=== PATIENT | female | born 1950 | race Caucasian/White ===

== ENCOUNTER 2016-05-12 13:14 | Inpatient (IN) | payer MEDICARE ==
[~2016-05-12] VITALS: Ht 165.1 cm; Wt 123.8 kg
--- NOTE | 2016-05-12 12:20 | PD.HP.UP ---
H&P Update Note The Pre-Admit History and Physical Examination regarding the above named patient was reviewed (including, but not limited to, vital signs, heart, lungs, co-morbid conditions), and upon re-examination it is noted that: the patient's condition has not significantly changed since the last examination. Troy Torrez MD May 12, 2016 12:20
[~2016-05-12 13:14] MED LIST: LEVO175T2 PO; LISI-515 PO; MELO-1 PO; MULTTAB67 PO; NEOSTIGMINE 3 MG/3 ML SYR IV ONE; ONDANSETRON HCL 4 MG/2 ML VIAL IV PUSH ONE; PARO20TA2 PO; PHENYLEPH/NS 1000 MCG/10 ML SYR IV ONE; PROPOFOL 200 MG/20 ML AMP IV ONE; TIZA4CAP3 PO; ePHEDrine/NS 50 MG/5 ML SYR IV ONE
[2016-05-12 13:58] VITALS: BP 160/91; PULSE 91; RESP 16; TEMP 97.4; O2SAT 96
[2016-05-12] MEDS ORDERED: METOPROLOL TARTRATE 25 MG TAB PO PRN (14:15)
[2016-05-12] MEDS ORDERED: INSULIN HUMAN REGULAR 1,000 UNITS/10 ML VIAL SQ PRN (14:15)
[2016-05-12] MEDS ORDERED: LACTATED RINGER'S 1000 ML IV SCH (14:15)
[2016-05-12] MEDS ORDERED: SODIUM CHLORID 0.9% 500 ML IV SCH (14:15)
[2016-05-12 14:26] LABS: AUTOMATED NEUTROPHIL # 7.5 TH/MM3 (1.8-7.7); BASOPHIL # 0.1 TH/MM3 (0-0.2); BASOPHIL % 0.7 % (0.0-2.0); EOSINOPHIL # 0.3 TH/MM3 (0-0.4); EOSINOPHIL % 2.7 % (0.0-4.0); HEMATOCRIT 41.2 % (35.0-46.0); HEMO FLAGS DIFF FINAL; LYMPHOCYTE # 1.3 TH/MM3 (1.0-4.8); MEAN CELL VOLUME 86.7 FL (80.0-100.0); MEAN CORPUSCULAR HEMOGLOBIN 29.5 PG (27.0-34.0); MONO % 6.2 % (0.0-8.0); NEUT % 77.4 % (16.0-70.0); PLATELET COUNT 281 TH/MM3 (150-450); RED BLOOD COUNT 4.75 MIL/MM3 (4.00-5.30); RED CELL DISTRIBUTION WIDTH 14.8 % (11.6-17.2); WHITE BLOOD COUNT 9.7 TH/MM3 (4.0-11.0)
[2016-05-12] MEDS ORDERED: ceFAZolin 2 GM PREMIX 50 ML ONE (15:35)
[2016-05-12] MEDS ORDERED: metroNIDAZOLE 500 MG INJ 100 ML IV ONE (15:35)
[2016-05-12] MEDS ORDERED: ENALAPRILAT 1.25 MG/ML VIAL IV PRN (16:30)
[2016-05-12] MEDS ORDERED: ENALAPRILAT 2.5 MG/2 ML VIAL IV PRN (16:30)
[2016-05-12] MEDS ORDERED: Post-op Orders (for Pharmacy) MISC XX ONE (16:30)
[2016-05-12] MEDS ORDERED: POTASSIUM CHLOR 40 MEQ PREMIX 100 ML IV PRN (16:30)
[2016-05-12] MEDS ORDERED: NALOXONE HCL 0.4 MG/ML AMP IV PRN (16:30)
[2016-05-12] MEDS ORDERED: ONDANSETRON HCL 4 MG/2 ML VIAL IV PRN (16:30)
[2016-05-12] MEDS ORDERED: BENZOCAINE 6 MG/MENTHOL 10 MG LOZENGE SUCK-ON PRN (16:30)
[2016-05-12] MEDS ORDERED: SODIUM CHLORIDE 0.9% FLUSH 5 ML FLUSH IVF PRN (16:30)
[2016-05-12] MEDS ORDERED: MORPHINE SULFATE 30 MG/30 ML PCA IV SCH (16:30)
[2016-05-12] MEDS ORDERED: POTASSIUM CHLOR 20 MEQ PREMIX 100 ML IV PRN (16:30)
[2016-05-12] MEDS ORDERED: fentaNYL CITRATE 250 MCG/5 ML AMP ONE (16:43)
[2016-05-12] MEDS ORDERED: ACETAMINOPHEN 325 MG TAB PO PRN (17:00)
[2016-05-12] MEDS: metroNIDAZOLE 500 MG INJ 100 ML IV SCH (17:00)
[2016-05-12] MEDS ORDERED: KETOROLAC TROMETHAMINE 30 MG/ML (IVP) VIAL IVP PRN (17:00)
[2016-05-12] MEDS: D5-NS + KCL 20 MEQ INJ 1,000 ML IV SCH (17:00)
[2016-05-12] MEDS ORDERED: ACETAMINOPHEN/HYDROcodone 325 MG/5 MG TAB PO PRN ×2 (17:00)
--- NOTE | 2016-05-12 17:13 | HHI.FF ---
Face to Face Verification Diagnosis: (1) Postoperative wound sinus Home Health Nursing Order: Signs/symptoms of disease process Wound care and dressing changes I have seen patient Liane John on 05/12/16. My clinical findings support the need for the requested home health care services because: Deconditioned w/ increased weakness High risk of falls Infection w/ risk of complications I certify that my clinical findings support that this patient is homebound because: Post-op weakness Hx COPD- exertion dyspnea/weakness Unsafe to leave home unassisted Unable to use public transportation Troy Torrez MD May 12, 2016 17:13
[2016-05-12 20:00] VITALS: BP 133/66; PULSE 65; RESP 18; TEMP 96.6; O2SAT 98
[2016-05-12] MEDS: SODIUM CHLORIDE 0.9% FLUSH 5 ML FLUSH IVF SCH (21:00)
[2016-05-12] MEDS: PCA - TOTAL MG MORPHINE DELIVERED PER SHIFT SCH (21:54)
[2016-05-12] MEDS: METOCLOPRAMIDE HCL 10 MG/2 ML VIAL IVS SCH (21:54)
[2016-05-13] VITALS (7 sets, daily range): BP systolic 113–164; BP diastolic 56–77; PULSE 62–81; RESP 17–19; TEMP 96.8–98.4; O2SAT 92–98
[2016-05-13] MEDS: D5-NS + KCL 20 MEQ INJ 1,000 ML IV SCH ×2 (02:04→11:28)
[2016-05-13] MEDS: metroNIDAZOLE 500 MG INJ 100 ML IV SCH ×2 (02:04→08:38)
[2016-05-13] MEDS: PCA - TOTAL MG MORPHINE DELIVERED PER SHIFT SCH ×2 (05:39→13:46)
[2016-05-13 05:50] LABS: AUTOMATED NEUTROPHIL # 6.6 TH/MM3 (1.8-7.7); BASOPHIL # 0.1 TH/MM3 (0-0.2); BASOPHIL % 0.9 % (0.0-2.0); EOSINOPHIL # 0.2 TH/MM3 (0-0.4); EOSINOPHIL % 2.4 % (0.0-4.0); HEMATOCRIT 37.4 % (35.0-46.0); HEMO FLAGS DIFF FINAL; LYMPH % 11.8 % (9.0-44.0); MEAN CELL VOLUME 87.8 FL (80.0-100.0); MEAN CORPUSCULAR HEMOGLOBIN 28.8 PG (27.0-34.0); MEAN CORPUSCULAR HGB CONC 32.8 % (32.0-36.0); MONO % 7.2 % (0.0-8.0); NEUT % 77.7 % (16.0-70.0); PLATELET COUNT 236 TH/MM3 (150-450); RED BLOOD COUNT 4.26 MIL/MM3 (4.00-5.30); RED CELL DISTRIBUTION WIDTH 14.9 % (11.6-17.2); WHITE BLOOD COUNT 8.4 TH/MM3 (4.0-11.0)
[2016-05-13 06:05] LABS: BICARBONATE 29.5 MEQ/L (21.0-32.0); POTASSIUM 4.1 MEQ/L (3.5-5.1)
[2016-05-13] MEDS: SODIUM CHLORIDE 0.9% FLUSH 5 ML FLUSH IVF SCH (08:39)
[2016-05-13] MEDS: METOCLOPRAMIDE HCL 10 MG/2 ML VIAL IVS SCH (08:39)
[2016-05-13] MEDS ORDERED: PANTOPRAZOLE SOD 40 MG DELAYED RELEASE TAB PO SCH (09:00)
[2016-05-13] MEDS ORDERED: PANTOPRAZOLE SODIUM 40 MG VIAL IVP SCH (09:00)
--- NOTE | 2016-05-13 14:02 | EKG ---
Date Performed: 05/12/2016 Time Performed: 13:58:58 PTAGE: 65 years EKG: Sinus rhythm MARKED LEFT AXIS DEVIATION ABNORMAL ECG Since PREVIOUS TRACING , no significant change noted PREVIOUS TRACIN07/03/2015 10.08 DOCTOR: Marcin Garnica Interpretating Date/Time 05/13/2016 13:57:54
[2016-05-13] MEDS ORDERED: ALVIMOPAN 12 MG CAPSULE PO SCH (21:00)
[2016-05-13] MEDS ORDERED: LEVOTHYROXINE SODIUM 100 MCG TAB PO SCH (21:00)
[2016-05-13] MEDS ORDERED: PARoxetine HCL 20 MG TAB PO SCH (21:00)
[2016-05-13] MEDS ORDERED: LEVOTHYROXINE SODIUM 75 MCG TAB PO SCH (21:00)
[2016-05-13] MEDS ORDERED: MELOXICAM 15 MG TAB PO SCH (21:00)
[2016-05-13] MEDS ORDERED: LISINOPRIL 20 MG TAB PO SCH (21:00)
--- NOTE | 2016-05-13 23:01 | HHI.PR ---
Subjective Remarks C/R Surg POD #1 afebrile, VSS UO good len PO wound vac min Objective - Vital Signs Date Time Temp Pulse Resp B/P Pulse Ox O2 Delivery O2 Flow Rate FiO2 05/13/16 16:00 98.3 81 17 152/70 98 05/13/16 01:25 Nasal Cannula 05/12/16 18:00 2 Result Diagram: 05/13/1644205/13/16442 Objective Remarks PE alert Abd - soft, vac in place A/P Assessment and Plan Imp: stable post-op forms for home wound vac filled out - pt insisting on being dc'd home without wound vac available recommended she wait with present wound vac in place until tomorrow, but she refused to stay for continued therapy. Pt and famiy accept poss complications by leaving against medical advice. Troy Torrez MD May 13, 2016 23:00
--- NOTE | 2016-05-28 18:05 | MP ---
cc: KATIE VIRAMONTES M.D. DATE OF SURGERY: 05/12/2016 PREOPERATIVE DIAGNOSIS: A chronic draining wound sinus PROCEDURE Examination under anesthesia with irrigation debridement and extensive irrigation debridement of abdominal wound and previously placed abdominal wall mesh. POSTOPERATIVE DIAGNOSIS Examination under anesthesia with irrigation debridement and extensive irrigation debridement of abdominal wound and previously placed abdominal wall mesh. SURGEON Dr. Viramontes PROCEDURE The patient was placed in the supine position. After adequate general anesthesia her abdomen was prepped with Betadine solution and draped in usual sterile fashion. Initially a probe was used to identify the two sinuses along the previous transverse incision. These were connected together by excising the previous transverse incision between the true sinuses and taking the dissection down through the subcutaneous tissues. At the fascial level, there appeared to be some soupy tissue mostly granulation tissue but did appear to involve previously placed mesh. The incision was therefore further extended to the right and left side unroofing additional the granulation tissue and nonhealing subcutaneous tissue which appeared to involve the mesh. The plane underneath the mesh was created and the mesh was debrided back to healthy Subcu tissue. There did appear to be two different types of mesh present in the wound. One more of a Marlex mesh and the other one appeared to be more of a [place] type material. After all the visible mesh was debrided, the wound appeared to be pretty healthy. The Subcu tissues irrigated copiously and vigorously. Curette was used to remove any chronic granulation tissue and any other foreign material from the Subcu tissues. Hemostasis was achieved. After adequate irrigation debridement the wound was packed loosely with a wound sponge and a wound vac dressing for sealing the sponge. The appropriate wound vac suction was applied showing no leaks in the wound vac set up. The patient tolerated the procedure quite well and was brought to recovery room in stable condition. Sponge and needle counts were correct at the end of the procedure. MD ADINA Leonard/nai /7:20 PM /5:58 PM
== END 2016-05-13 18:54 | disposition home health service (06) | DRG 858 ==
LOC: HSDC 13:14 → HSDI 16:28 → N07B 18:30
PROVIDERS: ADMIT Colon & Rectal Surgery; ATTEND Colon & Rectal Surgery
PROC: 0JB80ZZ Excision of Abdomen Subcutaneous Tissue and Fascia, Open Approach (ICD-10-PCS; principal; 2016-05-12 15:21)
DX: T81.4XXA Infection following a procedure, initial encounter (principal); B99.9 Unspecified infectious disease
CPT/HCPCS: 76937; 80048; 85025; 93005; 94150; J0690; J2270; J2370; J2405; J2710; J2765; J3010; J3480; J7120